=== PATIENT | female | born 1995 | race Caucasian/White ===

== ENCOUNTER 2016-11-03 12:33 | Emergency (ER) | payer MEDICAID ==
[2016-11-03 12:34] VITALS: BMI 23.3
[2016-11-03 12:40] VITALS: TEMP 97.9
--- NOTE | 2016-11-03 13:14 | C.PDOC ---
History Of Present Illness The patient reports 2 day history of left ear popping and pressure above the left eyebrow. The patient reports that she has afamily history of seasonal allergies. Denies fever, trauma, hearing loss, drainage, dizziness, chest pain, SOB, neck pain, or travel. Time Seen by Provider: 11/03/16 12:52 Chief Complaint (Nursing): ENT Problem History Per: Patient History/Exam Limitations: None Onset/Duration Of Symptoms: Persistent Current Symptoms Are (Timing): Still Present Severity: Mild Pain Scale Rating Of: 4 Anticoagulant/Antiplatlet Use?: No Past Medical History Reviewed: Historical Data, Nursing Documentation, Vital Signs Vital Signs: Last Vital Signs Temp 97.9 F 11/03/16 12:38 Pulse 88 11/03/16 13:55 Resp 25 H 11/03/16 13:55 BP 109/72 11/03/16 13:55 Pulse Ox 100 11/03/16 13:55 - Medical History PMH: No Chronic Diseases Family History: States: Other (allergies) - Social History Hx Tobacco Use: No Hx Alcohol Use: No Hx Substance Use: No - Immunization History Hx Tetanus Toxoid Vaccination: No Hx Influenza Vaccination: Yes Hx Pneumococcal Vaccination: No Review Of Systems Except As Marked, All Systems Reviewed And Found Negative. Constitutional: Negative for: Fever, Chills Eyes: Negative for: Pain ENT: Positive for: Nose Discharge (runny nose) Cardiovascular: Negative for: Chest Pain Physical Exam - Physical Exam Appears: Well, No Acute Distress Skin: Normal Color, Warm, No Rash Head: Atraumatic, Normacephalic, Other ((+) mild left sided frontal sinus tenderness) Eye(s): bilateral: Normal Inspection, PERRL, EOMI Ear(s): Bilateral: Normal Oral Mucosa: Moist Throat: Normal, No Erythema, No Exudate Neck: Normal ROM, Supple Cardiovascular: Rhythm Regular, No Friction Rub, No Murmur Respiratory: Normal Breath Sounds, No Rales, No Rhonchi, No Wheezing Back: Normal Inspection, No CVA Tenderness Extremity: Normal ROM Neurological/Psych: Oriented x3, Normal Speech, Normal Cranial Nerves, Normal Motor, Normal Sensation Gait: Steady ED Course And Treatment O2 Sat by Pulse Oximetry: 95 Disposition - Disposition Referrals: George Mckinney MD [Staff Provider] - Disposition: HOME/ ROUTINE Disposition Time: 13:12 Condition: GOOD Additional Instructions: Follow up with the medical doctor within 1-2 days. Return if worsened, Prescriptions: Loratadine [Claritin] 10 mg PO DAILY #10 tab predniSONE [Prednisone] 10 mg PO BID #10 tab Instructions: Allergies (ED) - Clinical Impression Clinical Impression: Allergic sinusitis
[2016-11-03 13:56] VITALS: BP 109/72; PULSE 88; RESP 25
[2016-11-03 14:45] VITALS: O2SAT 95
== END 2016-11-03 13:57 | disposition home or self-care (01) ==
LOC: C.ER 12:33
DX: J30.9 Allergic rhinitis, unspecified (principal)

== ENCOUNTER 2017-06-26 20:56 | Emergency (ER) | payer MEDICAID ==
[2017-06-26 20:57] VITALS: BMI 23.3
[2017-06-26 21:02] VITALS: BP 128/77; PULSE 86; RESP 16; TEMP 97.6; O2SAT 100
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
== END 2017-06-26 21:45 | disposition home or self-care (01) ==
LOC: C.ER 20:56
DX: Z04.1 Encounter for examination and observation following transport accident (principal)